=== PATIENT | female | born 1950 | race Caucasian/White ===

== ENCOUNTER → 2016-09-04 | Outpatient (CLI) | payer OTHER, MEDICARE ==
[~2016-09-04] MED LIST: AMLODIPINE BESYL5 MG PO; ASPIR LOW81 MG PO; ASPIRIN E.C. 8181 M1 PO; CALCITRIOL0.25 MCG PO; CARVEDILOL25 MG PO; FISH OIL500 M2 PO; KEPPRA 500MG500 MG PO; KLOR-CON 1010 MEQ PO; LANTUS PEN100 U/ML SC; LANTUS SOLOS100 U/M1 SQ; LANTUS SOLOS100 U/ML SC; LASIX 40MG TABL40 MG PO; LEVAQUIN 2250 MG/TAB PO; LEVETIRACETAM500 MG PO; MASON NATURAL2000 IU PO; NATURAL IRON65 MG PO; NITROGLYCERIN0.4 MG SL; NORCO 325 MG-51 TA1 PO; POTASSIUM CH2 MEQ/ML PO; PROCARDIA 10MG10 MG PO; SIMVASTATIN20 MG PO
== END ==
LOC: RAD 12:56
DX: I25.10 Atherosclerotic heart disease of native coronary artery without angina pectoris (principal); I65.23 Occlusion and stenosis of bilateral carotid arteries

== ENCOUNTER → 2017-01-31 | Outpatient (REF) ==
[2016-02-04 11:48] VITALS: BP 144/66
== END ==
LOC: LAB 07:02
DX: C18.2 Malignant neoplasm of ascending colon (principal); N18.4 Chronic kidney disease, stage 4 (severe); E11.9 Type 2 diabetes mellitus without complications; Z79.4 Long term (current) use of insulin

== ENCOUNTER 2017-11-08 23:28 | Emergency (ER) | payer MEDICARE, BC ==
[~2017-11-08] VITALS: Ht 167.6 cm; Wt 115.0 kg
[~2017-11-08 23:28] MED LIST changes: -FISH OIL500 M2 PO; +KRILL OIL 5001 EACH PO; -SIMVASTATIN20 MG PO; +ZOCOR20 M1 PO
[2017-11-08] MEDS ORDERED: TORSEMIDE100 MG PO (23:51)
[2017-11-08] MEDS ORDERED: PROCARDIA XL30 M1 PO (23:52)
[2017-11-08] MEDS ORDERED: COLACE100 M1 PO (23:54)
[2017-11-09 01:18] LABS: HEMATOCRIT 36.2 % (37.0-47.0); HEMOGLOBIN 11.6 g/dL (12.5-16.0); MEAN CELL VOLUME 95 fl (78-100); MEAN CORPUSCULAR HEMOGLOBIN 30 pg (27-31); MEAN CORPUSCULAR HGB CONC 32 g/dL (33-37); RED BLOOD COUNT 3.81 M/mm3 (4.10-5.30); RED CELL DISTRIBUTION WIDTH 13.6 % (11.5-14.5); WHITE BLOOD COUNT 8.9 K/mm3 (4.8-10.8)
[2017-11-09 01:30] LABS: ALBUMIN 3.5 g/dL (3.5-5.0); BUN/CREATININE RATIO 8.7 (6.0-26.0); CALCIUM 8.8 mg/dL (8.4-10.2); TOTAL BILIRUBIN 0.6 mg/dL (0.2-1.3); TOTAL PROTEIN 8.7 g/dL (6.3-8.2)
[2017-11-09 01:37] LABS: LYMPHOCYTE 30 % (20-51); MONOCYTE 5 % (3-10); NEUTROPHILS 63 % (42-75)
[2017-11-09 02:10] LABS: TROPONIN-I 0.21 ng/mL (0.00-0.06)
[2017-11-09 02:12] LABS: URINE APPEARANCE CLOUDY; URINE BILIRUBIN NEGATIVE (NEGATIVE); URINE COLOR YELLOW; URINE GLUCOSE 50 mg/dL mg/dL (NEGATIVE); URINE KETONE NEGATIVE (NEGATIVE); URINE NITRATE NEGATIVE (NEGATIVE); URINE PROTEIN(semi-quant) 3+ mg/dL (NEGATIVE); URINE UROBILINOGEN NORMAL (NORMAL)
[2017-11-09 02:13] LABS: URINE BLOOD 50 ery/uL (NEGATIVE); URINE LEUKOCYTE ESTERASE 2+ (NEGATIVE); URINE WBC >50 /hpf (0-3)
[2017-11-09 02:57] VITALS: BP 155/63
== END 2017-11-09 02:57 | disposition home or self-care (01) ==
LOC: ED 23:28
PROVIDERS: Nurse Practitioner Family
DX: I95.1 Orthostatic hypotension (principal); E11.22 Type 2 diabetes mellitus with diabetic chronic kidney disease; I13.2 Hypertensive heart and chronic kidney disease with heart failure and with stage 5 chronic kidney disease, or end stage renal disease; I50.9 Heart failure, unspecified; N18.6 End stage renal disease; Z99.2 Dependence on renal dialysis; Z95.5 Presence of coronary angioplasty implant and graft; Z93.3 Colostomy status; Z85.038 Personal history of other malignant neoplasm of large intestine; G40.909 Epilepsy, unspecified, not intractable, without status epilepticus; Z79.4 Long term (current) use of insulin; Z79.82 Long term (current) use of aspirin; D63.1 Anemia in chronic kidney disease

== ENCOUNTER → 2018-10-11 | Outpatient (CLI) | payer MEDICARE, BC ==
[~2018-10-11] VITALS: Ht 167.6 cm; Wt 115.0 kg
[~2018-10-11] MED LIST changes: +BASAGLAR K100 UNIT/1 SQ; +COLACE100 M1 PO; +PROCARDIA XL30 M1 PO; +TORSEMIDE100 MG PO; +TUMS REGULAR S500 MG PO
[2018-10-11 17:01] VITALS: BP 136/57
== END ==
LOC: AMSURD 15:56
DX: I49.9 Cardiac arrhythmia, unspecified (principal)

== ENCOUNTER → 2018-10-24 | Outpatient (CLI) | payer MEDICARE, BC ==
[2018-10-11 17:01] VITALS: BP 136/57
== END ==
LOC: RAD 10-17 14:00
DX: I65.23 Occlusion and stenosis of bilateral carotid arteries (principal)

== ENCOUNTER → 2020-07-20 | Outpatient (CLI) | payer MEDICARE, BC ==
[2018-10-11 17:01] VITALS: BP 136/57
== END ==
LOC: RAD 11:00
DX: R59.0 Localized enlarged lymph nodes (principal)

== ENCOUNTER 2020-10-14 16:23 | Emergency (ER) | payer MEDICARE, BC ==
[2020-10-14 16:55] LABS: EOS # 0.1 (0.04-0.40); EOS % 2.2 % (1.0-5.0); HEMATOCRIT 39.7 % (37.0-47.0); HEMOGLOBIN 12.4 g/dL (12.5-16.0); MEAN CELL VOLUME 96 fl (78-100); MEAN CORPUSCULAR HEMOGLOBIN 30 pg (27-31); MEAN CORPUSCULAR HGB CONC 31 g/dL (33-37); MONO # 0.6 (0.20-0.80); NEU # 4.7 (1.40-6.50); PLATELET COUNT 158 K/mm3 (130-400); RED BLOOD COUNT 4.14 M/mm3 (4.10-5.30); RED CELL DISTRIBUTION WIDTH 15.4 % (11.5-14.5); WHITE BLOOD COUNT 6.5 K/mm3 (4.8-10.8)
[2020-10-14] MEDS ORDERED: PREGABALIN25 MG PO (17:00)
[2020-10-14] MEDS ORDERED: MIDODRINE 5 MG (17:00)
[2020-10-14] MEDS ORDERED: CALCIUM ACETAT667 MG PO (17:00)
[2020-10-14] MEDS ORDERED: LEVETIRACETAM500 M2 PO (17:01)
[2020-10-14 17:06] LABS: MEAN PLATELET VOLUME 13.4 fl (7.4-10.4)
[2020-10-14 17:17] LABS: TROPONIN-I 0.83 ng/mL (<0.030)
[2020-10-14 17:25] LABS: MAGNESIUM 2.03 mg/dL (1.60-2.60)
[2020-10-14 18:06] LABS: ALBUMIN 2.9 g/dL (3.4-4.8)
[2020-10-14 18:07] LABS: POTASSIUM 3.5 mmol/L (3.5-5.1)
[2020-10-14 18:08] LABS: CALCIUM 9.2 mg/dL (8.3-10.5)
[2020-10-14 18:09] LABS: TOTAL PROTEIN 7.9 g/dL (6.2-8.1)
[2020-10-14 18:09] LABS: URINE APPEARANCE CLOUDY; URINE BILIRUBIN NEGATIVE (NEGATIVE); URINE BLOOD 250 ery/uL (NEGATIVE); URINE COLOR YELLOW; URINE GLUCOSE 50 mg/dL mg/dL (NEGATIVE); URINE KETONE NEGATIVE (NEGATIVE); URINE LEUKOCYTE ESTERASE 2+ (NEGATIVE); URINE NITRATE NEGATIVE (NEGATIVE); URINE PROTEIN(semi-quant) 2+ mg/dL (NEGATIVE); URINE UROBILINOGEN NORMAL (NORMAL)
[2020-10-14 18:10] LABS: URINE WBC >50 /hpf (0-3)
[2020-10-14 18:11] LABS: TOTAL BILIRUBIN 0.7 mg/dL (0.2-1.2)
[2020-10-14 20:26] VITALS: BP 129/96
== END 2020-10-14 20:26 | disposition short-term general hospital (02) ==
LOC: ED 16:23
PROVIDERS: Nurse Practitioner Family
DX: I13.0 Hypertensive heart and chronic kidney disease with heart failure and stage 1 through stage 4 chronic kidney disease, or unspecified chronic kidney disease (principal); I50.9 Heart failure, unspecified; N18.9 Chronic kidney disease, unspecified; N39.0 Urinary tract infection, site not specified; J90 Pleural effusion, not elsewhere classified; I48.91 Unspecified atrial fibrillation; R74.8 Abnormal levels of other serum enzymes; I25.10 Atherosclerotic heart disease of native coronary artery without angina pectoris; I25.2 Old myocardial infarction; E11.9 Type 2 diabetes mellitus without complications; G40.909 Epilepsy, unspecified, not intractable, without status epilepticus; Z99.2 Dependence on renal dialysis; Z79.4 Long term (current) use of insulin; Z95.9 Presence of cardiac and vascular implant and graft, unspecified; Z79.82 Long term (current) use of aspirin; Z77.22 Contact with and (suspected) exposure to environmental tobacco smoke (acute) (chronic); Z20.822 Contact with and (suspected) exposure to COVID-19
CPT/HCPCS: J1200; J1815; J1940; J1956; J7030